=== PATIENT | female | born 1995 | race Caucasian/White ===

== ENCOUNTER 2020-06-26 06:17 | Inpatient (IN) ==
[2020-06-26] MEDS ORDERED: BUTORPHANOL 2 MG/ML VIAL IV PRN (07:13)
[2020-06-26] MEDS ORDERED: LACTATED RINGERS 250 ML IV ONE (07:13)
[2020-06-26] MEDS ORDERED: ONDANSETRON 4 MG/2 ML VIAL IV PRN (07:13)
[2020-06-26] MEDS ORDERED: BUTORPHANOL 1 MG/ML VIAL IV PRN (07:13)
[2020-06-26] MEDS: LACTATED RINGERS 1,000 ML IV SCH ×3 (07:24→20:33)
[2020-06-26] MEDS ORDERED: OXYTOCIN/LR 20 UNIT/1,000 ML BAG IV SCH (07:30)
[2020-06-26] MEDS ORDERED: TERBUTALINE 1 MG/1 ML VIAL SUBCUT ONE (07:30)
[2020-06-26 07:35] LABS: Basophils % 0.3 % (0.0-0.8); Eosinophils # 0.2 10*3/uL (0.0-0.87); Hematocrit 38.3 VOL% (35.7-47.0); Hemoglobin 12.8 GM/DL (12.0-16.0); Immature Granulocytes % 0.9 %; Lymphocytes # 1.7 10*3/uL (1.4-4.0); Lymphocytes % 14.1 % (21.3-54.2); Mean Corpuscular HGB Conc 33.4 GM/DL (32-36); Mean Corpuscular Volume 88.9 FL (87-102); Mean Platelet Volume 10.8 FL (9.6-12.0); Monocytes % 8.9 % (1.7-12.7); Neutrophils % 73.8 % (38.7-73.9); Platelet Count 251 T/CUMM (130-400); Red Blood Count 4.31 MC/CUMM (3.8-5.5); Red Cell Distribution Width 13.1 % (9.3-17.3); White Blood Count 11.7 T/CUMM (4-12)
[2020-06-26] MEDS ORDERED: TERBUTALINE 1 MG/1 ML VIAL ONE (07:38)
[2020-06-26] MEDS ORDERED: ONDANSETRON 4 MG/2 ML VIAL IV ONE (14:31)
[2020-06-26] MEDS ORDERED: FAMOTIDINE 20 MG/2 ML VIAL IV ONE (14:31)
[2020-06-26] MEDS ORDERED: diphenhydrAMINE 50 MG/1 ML VIAL IV PRN ×2 (14:31)
[2020-06-26] MEDS ORDERED: PROMETHAZINE 25 MG/1 ML VIAL IM ONE (14:31)
[2020-06-26] MEDS ORDERED: NALOXONE 0.4 MG/ML VIAL IV PRN (14:31)
[2020-06-26] MEDS ORDERED: hydrOXYzine HCL 25 MG/1 ML VIAL IM PRN (14:31)
[2020-06-26] MEDS ORDERED: ePHEDrine 50 MG/ML VIAL IV PRN (14:31)
[2020-06-26] MEDS ORDERED: CITRIC ACID/SODIUM CITRATE 30 ML UDCUP PO ONE (14:31)
[2020-06-26] MEDS ORDERED: fentaNYL 2 MCG/ROPIV 0.2% EPID 100 ML EPIDURAL SCH (15:00)
[2020-06-26 17:39] LABS: Bilirubin,Urine Negative (Negative); Blood, Urine Negative (Negative); Glucose,Urine (UA) Negative (Negative); Ketones,Urine Negative (Negative); Mucus,Urine Occasional /LPF (Occasional); Nitrite,Urine Negative (Negative); Protein,Urine Negative; Urine Appearance CLEAR (Clear); Urine Color Yellow (Yellow); Urine Urobilinogen < 2.0 EU/DL (0.2-1.0); WBC,Urine <1 /HPF (0-6)
[2020-06-27] MEDS ORDERED: miSOPROStoL 200 MCG TABLET ONE (00:31)
[2020-06-27] MEDS ORDERED: OXYTOCIN/LR 20 UNIT/1,000 ML BAG IV ONE ×2 (00:31→03:47)
[2020-06-27] MEDS ORDERED: TRANEXAMIC ACID 1,000 MG/10 ML VIAL ONE (00:31)
[2020-06-27] MEDS ORDERED: SODIUM CHLORIDE 0.9% 0 ML IV ONE (00:32)
[2020-06-27] MEDS ORDERED: CARBOPROST TROMETHAMINE 250 MCG/ML AMP IM ONE (00:32)
[2020-06-27] MEDS ORDERED: METHYLERGONOVINE 0.2 MG/1 ML AMP ONE (00:32)
[2020-06-27 03:34] LABS: Cord Arterial Blood HCO3 22.9 MMOL/L
[2020-06-27 03:37] LABS: Cord Venous Blood HCO3 20.1 MMOL/L; Cord Venous Blood PCO2 54.9 MMHG; Cord Venous Blood PO2 17.3
[2020-06-27] MEDS ORDERED: BISACODYL 10 MG SUPP RECTAL PRN (03:47)
[2020-06-27] MEDS ORDERED: MEASLES/MUMPS/RUBELLA VACCINE 0.5 ML VIAL SUBCUT ONE (03:47)
[2020-06-27] MEDS ORDERED: ONDANSETRON 4 MG/2 ML VIAL IV PRN (03:47)
[2020-06-27] MEDS ORDERED: RHO(D) IMMUNE GLOBULIN 300 MCG SYRINGE IM ONE (03:47)
[2020-06-27] MEDS ORDERED: HYDROCORTISONE 2.5% RECTAL CREAM 30 GM TUBE TOP PRN (03:47)
[2020-06-27] MEDS ORDERED: BENZOCAINE 20%/MENTHOL 0.5% SPRAY 56 GM CAN TOP PRN (03:47)
[2020-06-27] MEDS ORDERED: DIPH/TET/ACEL PERT BOOSTER VACCINE 0.5 ML VIAL IM ONE (03:47)
[2020-06-27] MEDS ORDERED: WITCH HAZEL PADS 100/JAR TOP PRN (03:47)
[2020-06-27] MEDS ORDERED: IBUPROFEN 800 MG TABLET PO PRN (03:47)
[2020-06-27] MEDS ORDERED: ACETAMINOPHEN 325 MG TABLET PO PRN (03:47)
[2020-06-27] MEDS ORDERED: oxyCODONE/ACETAMINOPHEN 5-325 MG TABLET PO PRN ×2 (03:47)
[2020-06-27] MEDS ORDERED: LANOLIN 50% CREAM 0.3 OZ TUBE TOP PRN (03:47)
[2020-06-27 05:56] LABS: Basophils % 0.2 % (0.0-0.8); Eosinophils # 0.1 10*3/uL (0.0-0.87); Eosinophils % 0.4 % (0.00-10.9); Hematocrit 35.7 VOL% (35.7-47.0); Immature Granulocytes % 0.6 %; Lymphocytes # 1.2 10*3/uL (1.4-4.0); Lymphocytes % 6.5 % (21.3-54.2); Mean Corpuscular HGB Conc 33.6 GM/DL (32-36); Mean Corpuscular Volume 88.4 FL (87-102); Mean Platelet Volume 11.3 FL (9.6-12.0); Monocytes % 8.3 % (1.7-12.7); Platelet Count 224 T/CUMM (130-400); Red Blood Count 4.04 MC/CUMM (3.8-5.5); Red Cell Distribution Width 13.2 % (9.3-17.3); White Blood Count 17.6 T/CUMM (4-12)
[2020-06-27] MEDS: oxyCODONE/ACETAMINOPHEN 5-325 MG TABLET PO PRN ×4 (08:11→22:19)
[2020-06-27] MEDS: DOCUSATE SODIUM 100 MG CAPSULE PO SCH ×2 (18:35→20:29)
[2020-06-27] MEDS: KETOROLAC 30 MG/1 ML VIAL IV SCH (19:02)
[2020-06-28] MEDS: KETOROLAC 30 MG/1 ML VIAL IV SCH ×3 (01:25→12:46)
[2020-06-28 04:07] LABS: Basophils % 0.2 % (0.0-0.8); Eosinophils # 0.3 10*3/uL (0.0-0.87); Eosinophils % 1.8 % (0.00-10.9); Hematocrit 30.2 VOL% (35.7-47.0); Hemoglobin 10.1 GM/DL (12.0-16.0); Immature Granulocytes % 0.8 %; Immature Granulocytes Absolute 0.12 #; Lymphocytes # 2.4 10*3/uL (1.4-4.0); Lymphocytes % 14.9 % (21.3-54.2); Mean Corpuscular HGB Conc 33.4 GM/DL (32-36); Mean Corpuscular Volume 90.7 FL (87-102); Mean Platelet Volume 11.1 FL (9.6-12.0); Monocytes % 9.6 % (1.7-12.7); Neutrophils % 72.7 % (38.7-73.9); Platelet Count 195 T/CUMM (130-400); Red Blood Count 3.33 MC/CUMM (3.8-5.5); Red Cell Distribution Width 13.6 % (9.3-17.3); White Blood Count 15.9 T/CUMM (4-12)
[2020-06-28 09:46] VITALS: BP 135/74
[2020-06-28] MEDS: DOCUSATE SODIUM 100 MG CAPSULE PO SCH (10:10)
[2020-06-28] MEDS: oxyCODONE/ACETAMINOPHEN 5-325 MG TABLET PO PRN (10:15)
[2020-06-28] MEDS ORDERED: RHO(D) IMMUNE GLOBULIN 300 MCG SYRINGE IM ONE (12:11)
== END 2020-06-28 17:45 | disposition home or self-care (01) | DRG 542 ==
LOC: N.LDOUT 06:17 → N.LD 06:19 → N.OB 06-27 10:08
PROVIDERS: ADMIT Obstetrics & Gynecology; ATTEND Obstetrics & Gynecology